=== PATIENT | male | born 1990 | race Caucasian/White ===

== ENCOUNTER 2020-12-25 07:37 | Day surgery (SDC) | payer BC ==
[~2020-12-25] VITALS: Ht 180.3 cm; Wt 165.1 kg
[2020-12-25] VITALS (8 sets, daily range): BP systolic 122–148; BP diastolic 67–120
[2020-12-25] MEDS ORDERED: LORA-268 PO (08:27)
[2020-12-25] MEDS ORDERED: VITAMIN B12 (08:27)
[2020-12-25] MEDS ORDERED: VITAMIN D (08:27)
[2020-12-25] MEDS ORDERED: LEVO50TA8 PO (08:27)
[2020-12-25] MEDS ORDERED: LISI1TAB51 PO (08:27)
[2020-12-25] MEDS ORDERED: MAGNESIUM (08:27)
[2020-12-25] MEDS ORDERED: OMEP-50 PO (08:27)
[2020-12-25] MEDS ORDERED: MULT-1085 PO (08:27)
[2020-12-25] MEDS ORDERED: TUMERIC (08:27)
[2020-12-25 12:15] LABS: GLUCOSE,CSF 53 MG/DL (40-75); TOTAL PROTEIN,CSF 41 MG/DL (15-45)
[2020-12-25 12:49] LABS: APPEARANCE,CSF CLEAR; CSF RBC 235 /CU MM (0); CSF SUPERNATANT COLOR COLORLESS; CSF VOLUME 16 ML; CSF WBC CT 2 /CU MM (0-5); TUBE# COUNTED 1
== END 2020-12-25 13:10 | disposition home or self-care (01) ==
LOC: SSTAY O 07:37
PROVIDERS: ATTEND Psychiatry & Neurology Neurology
DX: G25.3 Myoclonus (principal); E03.9 Hypothyroidism, unspecified; I10 Essential (primary) hypertension; F41.9 Anxiety disorder, unspecified; K21.9 Gastro-esophageal reflux disease without esophagitis; Z98.52 Vasectomy status; Z72.89 Other problems related to lifestyle; F17.220 Nicotine dependence, chewing tobacco, uncomplicated; Z79.899 Other long term (current) drug therapy
CPT/HCPCS: 36415; 62328; 82040; 82042; 82784; 82945; 83873; 83916; 84157; 84166; 86335; 86592; 86617; 86788; 86789; 87015; 87070; 87102; 87210; 89051

== ENCOUNTER 2024-08-11 15:45 | Outpatient (CLI) | payer BC ==
[~2024-08-11 15:45] MED LIST: LEVO50TA8 PO; LISI1TAB51 PO; LORA-268 PO; MAGNESIUM; MULT-1085 PO; OMEP20CA16 PO; TUMERIC; VITAMIN B12; VITAMIN D
== END 2024-08-11 23:59 | disposition home or self-care (01) ==
LOC: CARD DIAG 15:45
PROVIDERS: ATTEND Nurse Practitioner Family
DX: I08.8 Other rheumatic multiple valve diseases (principal); I10 Essential (primary) hypertension; Z68.43 Body mass index [BMI] 50.0-59.9, adult
CPT/HCPCS: 93306